=== PATIENT | female | born 1980 | race Caucasian/White ===

== ENCOUNTER 2019-08-27 20:30 | Day surgery (SDC) | payer BC ==
[2019-08-27 21:21] VITALS: BP 118/65; TEMP 98.4; BMI 30.4
[2019-08-27] MEDS ORDERED: hydrALAZINE 20 MG/ML VIAL SLOW IVP PRN (21:49)
--- NOTE | 2019-08-27 22:22 | PRG ---
DATE OF SERVICE: 08/27/2019 PRIMARY OB: Macario Anderson DO, MS CHIEF COMPLAINT: Flu-like symptoms and decreased movement. HISTORY OF PRESENT ILLNESS: The patient is a 39-year-old G3, P1 female with an intrauterine at 36 weeks and 4 days with two-day symptoms of fever, body aches, head cold, cough and overall is feeling badly. Her main concern though was that she has not been feeling her baby move as much and came in for evaluation. The patient is scheduled to see her primary OB tomorrow. She reports a fever of 100.4 prior to coming into the emergency room. She denies any fall, has a headache. Denies nausea, vomiting, diarrhea, or constipation. She is having lower pelvic pain and body aches. Denies vaginal discharge or bleeding or leakage of fluid. PAST MEDICAL HISTORY: She has had thyroid disorder and asthma. PAST SURGICAL HISTORY: Noncontributory. ALLERGIES: SULFA. MEDICATIONS: 1. vitamins. 2. Thyroid medication. REVIEW OF SYSTEMS: Per HPI. OB LABS: Blood type O positive. Antibody screen is unavailable. She is GBS negative. Rubella immune. Hepatitis B surface antigen negative. HIV nonreactive. RPR nonreactive. PHYSICAL EXAMINATION: VITAL SIGNS: Current temperature 98.4, pulse of 90, respiratory rate of 16, and blood pressure 118/65. GENERAL: She appears to be flushed, does not appear to be feeling well. She is alert, oriented, cooperative, and pleasant to interact with. HEENT: Head is normocephalic and atraumatic. LUNGS: Clear to auscultation bilaterally. HEART: Has regular rate and rhythm. ABDOMEN: Gravid, soft, nontender. EXTREMITIES: Nontender and nonedematous. heart tracing shows the fetus with a baseline in the 130s with moderate long-term variability, positive 15 x 15 accelerations, no decelerations. Some irritability seen in the monitor, but no regular contraction pattern. ASSESSMENT AND PLAN: The patient is a 39-year-old female with 2-day history of fever, body aches, cough, headache, and flu-like symptoms. The patient is given the option of getting tested for flu and waiting for that test result to come back versus treating empirically. She has opted to treat empirically. We will be giving her Tamiflu 75 mg to be taken twice a day for the next five days. Recommended that other household members will also be treated prophylactically. The patient does have an appointment tomorrow with Dr. Anderson. We have encouraged that she not go to, but that she call and reschedule for about a week from now. We have also encouraged should her symptoms be difficult to manage at home for her to re-present to the emergency room for care. Fetus has a category 1 tracing, reactive NST. The patient is being discharged to home. Job ID: [id number]
== END 2019-08-27 21:50 | disposition home health service (06) ==
LOC: L&D/OP 20:30
PROVIDERS: ATTEND Obstetrics & Gynecology
DX: O36.8130 Decreased fetal movements, third trimester, not applicable or unspecified (principal); O99.89 Other specified diseases and conditions complicating pregnancy, childbirth and the puerperium; R05 Cough; R50.9 Fever, unspecified; R51 Headache; O99.283 Endocrine, nutritional and metabolic diseases complicating pregnancy, third trimester; E07.9 Disorder of thyroid, unspecified; O09.523 Supervision of elderly multigravida, third trimester; Z3A.36 36 weeks gestation of pregnancy; Z88.2 Allergy status to sulfonamides

== ENCOUNTER 2019-09-07 02:55 | Inpatient (IN) | payer BC ==
[2019-09-07 03:28] VITALS: BMI 30.5
[2019-09-07 03:42] LABS: Amnisure Test RUPTURE DETECTED (No Rupture)
[2019-09-07 03:43] LABS: Amnisure Internal Control QC ACCEPTABLE (ACCEPTABLE)
[2019-09-07 04:12] LABS: Hemoglobin 12.2 g/dL (12.0-16.0); Mean Corpuscular HGB CONC 34.6 g/dL (32.0-36.0); Mean Corpuscular Hemoglobin 31.5 pg (27.0-31.0); Mean Corpuscular Volume 91.1 fL (78.0-98.0); Mean Platelet Volume 6.8 fL (7.4-10.4); Platelet Count 322 thou/uL (130-400); RBC Distribution Width 11.8 % (11.5-14.5); Red Blood Cell (RBC) Count 3.86 mill/uL (4.20-5.40); White Blood Cell (WBC) Count 8.5 thou/uL (4.8-10.8)
[2019-09-07] MEDS ORDERED: Fentanyl 4 mcg/Bup 0.1% Cadd 100 ML ONE (04:18)
[2019-09-07] MEDS ORDERED: Lidocaine 1.5%/Epinephrine 1:200,000 5 ML AMPUL IJ ONE (04:34)
[2019-09-07] MEDS ORDERED: hydrALAZINE 20 MG/ML VIAL SLOW IVP PRN ×2 (04:35→08:15)
[2019-09-07] MEDS ORDERED: Lidocaine 1% (PF) 30 ML VIAL SC PRN (04:35)
[2019-09-07] MEDS ORDERED: Ibuprofen 800 MG TAB PO PRN (04:35)
[2019-09-07] MEDS ORDERED: HYDROcodone/Acetaminophen 5/325 mg Tablet PO PRN ×3 (04:35→08:15)
[2019-09-07] MEDS ORDERED: Butorphanol Tartrate 1 MG/ML VIAL SLOW IVP PRN (04:35)
[2019-09-07] MEDS ORDERED: Ondansetron PF 4 MG/2 ML Vial IVP PRN ×3 (04:35→08:15)
[2019-09-07] MEDS ORDERED: NS / Oxytocin 40 units/1000ml 1,000 ML IV PRN (04:35)
[2019-09-07 04:52] LABS: HBSAg Index 0.18 S/CO (0-0.99); Hep B Surf Ag Non-Reactive S/CO (NonReactive)
[2019-09-07 04:55] LABS: Syphilis Antibody Nonreactive (Nonreactive); Syphilis Antibody Index 0.05 S/CO (<1.00 Non-Reactive)
[2019-09-07] MEDS ORDERED: Bupivacaine 0.5% 10 ML VIAL ONE (05:09)
[2019-09-07] MEDS ORDERED: Fentanyl 100 MCG/2 ML VIAL ONE (05:09)
[2019-09-07] MEDS: Lactated Ringer's 1,000 ML IV SCH ×3 (05:27→23:56)
[2019-09-07] MEDS ORDERED: Fentanyl 100 MCG/2 ML VIAL I-THECAL ONE (06:13)
[2019-09-07] MEDS ORDERED: Promethazine HCl 25 MG/ML VIAL IM PRN (06:14)
[2019-09-07] MEDS ORDERED: diphenhydrAMINE 50 MG/ML VIAL IVP PRN (06:14)
[2019-09-07] MEDS ORDERED: Naloxone HCl 0.4 mg/ml Vial IVP PRN ×2 (06:14)
[2019-09-07] MEDS ORDERED: Acetaminophen 325 MG TAB PO PRN (06:14)
[2019-09-07] MEDS ORDERED: ePHEDrine/0.9% NaCl/PF SYRINGE 50 mg/10 ml SLOW IVP PRN (06:14)
[2019-09-07] MEDS ORDERED: Bupivacaine 0.25% 10 ML VIAL EPIDURAL ONE (06:14)
[2019-09-07] MEDS ORDERED: Lactated Ringer's 500 ML IV PRN (06:14)
[2019-09-07] MEDS ORDERED: Fentanyl 4 mcg/Bupivacaine 0.1% Cassette 100 ML EPIDURAL SCH (06:15)
[2019-09-07] MEDS ORDERED: Communication Order-Pharmacy FS SCH (06:15)
[2019-09-07] MEDS ORDERED: Bisacodyl 10 MG SUPP PR PRN (08:15)
[2019-09-07] MEDS ORDERED: Adacel (T-DAP) 0.5 ML SYRINGE IM ONE (08:15)
[2019-09-07] MEDS ORDERED: Milk Of Magnesia 30 ML UDCUP PO PRN (08:15)
[2019-09-07] MEDS ORDERED: Benzocaine-Menthol 82.5 ML CAN TOP PRN (08:15)
[2019-09-07] MEDS ORDERED: Lanolin Ointment 7 GM TUBE TOP PRN (08:15)
[2019-09-07] MEDS ORDERED: diphenhydrAMINE 25 MG CAP PO PRN (08:15)
[2019-09-07] MEDS ORDERED: Preparation H Ointment 28 GM TUBE PR PRN (08:15)
[2019-09-07] MEDS: NS / Oxytocin 40 units/1000ml 1,000 ML IV SCH ×2 (09:01→11:25)
[2019-09-07] MEDS: Docusate Calcium (SURFAK) 240 MG CAP PO SCH ×2 (15:21→21:24)
[2019-09-07] MEDS: Prenatal Vitamin 1 TAB PO SCH (15:21)
[2019-09-07] MEDS: Ibuprofen 800 MG TAB PO SCH ×2 (15:22→21:23)
[2019-09-07] MEDS: Ferrous Sulfate 325 MG TAB PO SCH (16:42)
[2019-09-08] MEDS: Ibuprofen 800 MG TAB PO SCH ×2 (05:16→13:45)
[2019-09-08 06:09] LABS: Hemoglobin 10.6 g/dL (12.0-16.0); Mean Corpuscular HGB CONC 34.6 g/dL (32.0-36.0); Mean Corpuscular Hemoglobin 32.2 pg (27.0-31.0); Mean Platelet Volume 6.7 fL (7.4-10.4); Platelet Count 279 thou/uL (130-400); RBC Distribution Width 12.1 % (11.5-14.5); Red Blood Cell (RBC) Count 3.31 mill/uL (4.20-5.40); White Blood Cell (WBC) Count 11.8 thou/uL (4.8-10.8)
--- NOTE | 2019-09-08 07:00 | PDOC.PP ---
Post Progress Note Post Day #: 1 Subjective: Doing well, no complaints. Would like to possibly go home today. PO intake tolerated: yes Flatus: yes Ambulation: yes Vital Signs (12 hours) Temp Pulse Resp BP Pulse Ox 09/08/19 04:44 97.9 F 61 14 127/76 97 09/08/19 00:06 97.4 F L 74 16 110/56 L 96 09/07/19 19:23 98.6 F 76 12 123/63 97 Weight Weight 178 lb - Physical Examination General: NAD Respiratory: non-labored breathing Abdominal: lochia (normal), no distention, appropriately TTP Fundus firm & at: below umbilicus Neurological: no gross focal deficits Psychiatric: A&Ox3, normal affect Result Diagrams: 09/08/19 05:51 Additional Labs: Post Labs Blood Type O POSITIVE 09/07/19 04:02 Hep Bs Antigen Non-Reactive S/CO (NonReactive) 09/07/19 04:02 (1) (spontaneous vaginal delivery) Code(s): O80 - ENCOUNTER FOR FULL-TERM UNCOMPLICATED DELIVERY Status: Acute - Assessment/Plan Doing well on PPD#1. Wants to consider going home this afternoon and will let her nurse know. Anticipate d/c today or tomorrow am.
[2019-09-08] MEDS: Ferrous Sulfate 325 MG TAB PO SCH (08:04)
[2019-09-08 10:02] VITALS: BP 120/58; TEMP 98.7
[2019-09-08] MEDS: Prenatal Vitamin 1 TAB PO SCH (10:02)
[2019-09-08] MEDS: Docusate Calcium (SURFAK) 240 MG CAP PO SCH (10:02)
== END 2019-09-08 16:01 | disposition home or self-care (01) | DRG 807 ==
LOC: L&D/OP 02:55 → L&D 04:13 → 3SW 14:42
PROVIDERS: ADMIT Obstetrics & Gynecology; ATTEND Obstetrics & Gynecology
PROC: 10E0XZZ Delivery of Products of Conception, External Approach (ICD-10-PCS; principal; 2019-09-07)
PROC: 0KQM0ZZ Repair Perineum Muscle, Open Approach (ICD-10-PCS; 2019-09-07)
DX: O99.284 Endocrine, nutritional and metabolic diseases complicating childbirth (principal); Z37.0 Single live birth; E03.9 Hypothyroidism, unspecified; Z3A.38 38 weeks gestation of pregnancy; O70.1 Second degree perineal laceration during delivery
CPT/HCPCS: 36415; 51702; 84112; 85027; 86780; 86850; 86900; 86901; 87340; 99285; J3010; J3490; S0020

== ENCOUNTER 2020-11-10 14:41 | Outpatient (CLI) | payer BC | END 2020-11-10 14:42 | disposition home or self-care (01) | LOC: BICMAMMO 14:41 | PROVIDERS: ATTEND Obstetrics & Gynecology | DX: Z12.31 Encounter for screening mammogram for malignant neoplasm of breast (principal) | CPT/HCPCS: 77063; 77067 ==

== ENCOUNTER 2022-01-07 13:25 | Outpatient (CLI) | payer BC | END 2022-01-07 13:26 | disposition home or self-care (01) | LOC: BICMAMMO 13:25 | PROVIDERS: ATTEND Obstetrics & Gynecology | DX: Z12.31 Encounter for screening mammogram for malignant neoplasm of breast (principal) | CPT/HCPCS: 77063; 77067 ==

== ENCOUNTER 2022-11-25 09:15 | Outpatient (CLI) | payer BC | END 2022-11-25 09:16 | disposition home or self-care (01) | LOC: BICRAD 09:15 | PROVIDERS: ATTEND Family Medicine | DX: M70.51 Other bursitis of knee, right knee (principal); M25.571 Pain in right ankle and joints of right foot ==

== ENCOUNTER 2023-04-01 14:00 | Outpatient (CLI) | payer BC | END 2023-04-01 14:01 | disposition home or self-care (01) | LOC: BICMAMMO 14:00 | PROVIDERS: ATTEND Obstetrics & Gynecology | DX: Z12.31 Encounter for screening mammogram for malignant neoplasm of breast (principal) | CPT/HCPCS: 77063; 77067 ==

== ENCOUNTER 2023-07-13 14:30 | Outpatient (CLI) | payer BC | END 2023-07-13 14:31 | disposition home or self-care (01) | LOC: RAD 14:30 | PROVIDERS: ATTEND Family Medicine | DX: M47.22 Other spondylosis with radiculopathy, cervical region (principal); M79.672 Pain in left foot; M21.611 Bunion of right foot; M20.11 Hallux valgus (acquired), right foot; M25.871 Other specified joint disorders, right ankle and foot; M79.89 Other specified soft tissue disorders; M85.871 Other specified disorders of bone density and structure, right ankle and foot; M25.872 Other specified joint disorders, left ankle and foot; M85.872 Other specified disorders of bone density and structure, left ankle and foot | CPT/HCPCS: 72050 ==